=== PATIENT | female | born 1950 | race Caucasian/White ===

== ENCOUNTER → 2017-05-16 | Outpatient (CLI) | payer OTHER ==
[~2017-05-16] MED LIST: ACETAMINOPHEN-120 ML PO; ASPIRIN EC325 M1 PO; AUGMENTIN 875875 MG PO; CIPRO500 MG PO; CRESTOR40 MG PO; FLEXERIL PO; FLONASE 0.05%50 MCG NASAL; FLONASE16 GM INH; FOSAMAX 70 MG T70 MG PO; HYDROCHLOROTHIA25 M1 PO; LISINOPRIL10 MG PO; NITROGLYCERIN0.4 MG SUBLING; NORCO 5-325 TA1 EACH PO; OCEAN45 ML NS; ONDANSETRON HCL4 M2 PO; PAROXETINE HCL20 MG PO; PLAVIX 75 MG TA75 MG PO; POTASSIUM20 PO; TOPROL XL50 MG PO; VICODIN 5-5001 EACH PO; WELLBUTRIN 75 M75 M1 PO
[2017-05-16 08:20] LABS: CREATININE 1.2 mg/dL (0.6-1.0)
== END ==
LOC: CAT 07:18
PROVIDERS: Internal Medicine Cardiovascular Disease
DX: I71.4 Abdominal aortic aneurysm, without rupture (principal); N26.1 Atrophy of kidney (terminal)

== ENCOUNTER 2017-07-15 16:18 | Emergency (ER) | payer OTHER ==
[~2017-07-15] VITALS: Ht 162.6 cm; Wt 51.3 kg
--- NOTE | ~2017-07-15 | EKG ---
[address] [place] [address] ELECTROCARDIOGRAM REPORT Name: FAM DAHL Room #: DEP Christian#: [id number] Admission: 07/15/17 Attend Phys: Discharge: 07/15/17 Date of : 50 Report #: [id number] THIS REPORT FOR: //name// [facility] ED Test Date: 2017-07-15 Test Time: 16:43:52 Pat Name: FAM DAHL Department: Room: Gender: F Saw Filer: ARYAN : 1950 Requested By: Yumiko Morgan Order Number: [id number] MD: Liborio Monet Measurements Intervals [place] Rate: 71 P: -4 VT: 129 QRS: 19 QRSD: 88 T: 56 QT: 439 QTc: 478 Interpretive Statements Sinus rhythm Nonspecific ST segment abnormality Compared to ECG 11/25/2015 13:46:28 No significant changes Electronically Signed On 07-17-2017 13:29:49 CDT by Liborio Monet [email or web address] <ELECTRONICALLY SIGNED> By: Liborio Monet MD, [facility] 07/17/17 1329 1643 1643 Liborio Monet MD, FACC /EPI
[2017-07-15 16:52] LABS: BASOPHILS 0.8 % (0.0-2.0); EOSINOPHILS 1.6 % (0.0-3.0); HEMATOCRIT 38.9 % (37.0-47.0); HEMOGLOBIN 13.6 gm/dL (12.0-15.0); LYMPHOCYTES 47.7 % (24.0-44.0); MCH 32.2 pg (26.0-34.0); MONOCYTES 8.4 % (1.0-8.0); PLATELET COUNT 113 thou/uL (150-400); POLYS 41.5 % (36.0-66.0); RBC 4.23 mil/uL (4.20-5.00); WBC 4.9 thou/uL (4.0-11.0)
[2017-07-15 16:53] LABS: MANUAL DIFF NO
[2017-07-15 17:05] LABS: CALCIUM 8.9 mg/dL (8.5-10.1); CREATININE 1.4 mg/dL (0.6-1.0)
[2017-07-15 17:08] LABS: POTASSIUM 2.7 mmol/L (3.5-5.1)
[2017-07-15 17:12] LABS: DIRECT BILIRUBIN 0.1 mg/dL (<0.1-0.3); TOTAL BILIRUBIN 0.5 mg/dL (<0.1-1.0)
[2017-07-15 17:13] LABS: ALBUMIN 2.5 g/dL (3.4-5.0); TOTAL PROTEIN 6.8 g/dL (6.4-8.2)
[2017-07-15] MEDS ORDERED: SLOW-MAG64 M1 PO (17:54)
[2017-07-15] MEDS ORDERED: ZOFRAN ODT4 MG PO (17:54)
[2017-07-15] MEDS ORDERED: POTASSIUM20 PO (17:54)
[2017-07-15 18:45] VITALS: BP 159/81
[2017-07-15 18:50] LABS: URINE BILIRUBIN NEGATIVE (Negative); URINE BLOOD TRACE (Negative); URINE COLOR YELLOW; URINE GLUCOSE-RANDOM* NEGATIVE (Negative); URINE KETONES NEGATIVE (Negative); URINE NITRITE NEGATIVE (Negative); URINE PROTEIN (DIPSTICK) NEGATIVE (Negative); URINE SPECIFIC GRAVITY <= 1.005 (1.003-1.035); URINE UROBILINOGEN 0.2 E.U./dl (0.2-1.0)
[2017-07-15 18:58] LABS: SQUAMOUS >10 Many /LPF (0-3); URINE RBC 0-2 Rare /HPF (0-2); URINE WBC 6-15 Few /HPF (0-5)
[2017-07-15 18:59] LABS: CASTS None Seen /LPF (None Seen); CRYSTALS None Seen /LPF (None Seen)
== END 2017-07-15 18:47 | disposition home or self-care (01) ==
LOC: ER 16:18
PROVIDERS: Emergency Medicine
DX: N39.0 Urinary tract infection, site not specified (principal); J06.9 Acute upper respiratory infection, unspecified; R53.83 Other fatigue; E87.6 Hypokalemia; E78.00 Pure hypercholesterolemia, unspecified; I12.9 Hypertensive chronic kidney disease with stage 1 through stage 4 chronic kidney disease, or unspecified chronic kidney disease; N18.9 Chronic kidney disease, unspecified; F31.9 Bipolar disorder, unspecified; G89.29 Other chronic pain; F17.210 Nicotine dependence, cigarettes, uncomplicated; Z86.73 Personal history of transient ischemic attack (TIA), and cerebral infarction without residual deficits; Z90.710 Acquired absence of both cervix and uterus; Z88.5 Allergy status to narcotic agent; Z88.1 Allergy status to other antibiotic agents; Z91.041 Radiographic dye allergy status

== ENCOUNTER → 2017-07-21 | Outpatient (CLI) | payer OTHER ==
[~2017-07-21] MED LIST changes: +SLOW-MAG64 M1 PO; +ZOFRAN ODT4 MG PO
--- NOTE | ~2017-07-21 | 2DMMODE ---
[facility] [address] [place] [address] 2 D/M-MODE ECHOCARDIOGRAM Name: FAM DAHL [id number] Admission: 07/21/17 Attend Phys: Pj Campbell MD Discharge: Date of : 50 Date of Service: 07/21/17 1602 Report #: [id number] THIS REPORT FOR: //name// APPROVED REPORT Study performed: 07/21/2017 15:11:48 EXAM: Comprehensive 2D, Doppler, and color-flow Echocardiogram Patient Location: Out-Patient Room #: Echo lab Status: routine BSA: 1.54 HR: 76 bpm BP: 102/54 mmHg Other Information Study Quality: Good Indications CAD 2D Dimensions RVDd: 27.02 mm LVEF(%): 61.54 (>50%) IVSd: 8.42 (7-11mm) LVOT Diam: 17.33 (18-24mm) LVDd: 40.72 mm PWd: 8.64 (7-11mm) Ascending Ao: 28.30 (22-36mm) LVDs: 27.43 (25-40mm) Aortic Root: 30.43 mm IVC: 11.00 mm Falcon's LVEF: 61.54 % Volumes Left Atrial Volume (Systole) Single Plane 4CH: 26.32 mL Single Plane 2CH: 36.39 mL LA ESV Index: 24.00 mL/m2 Aortic Valve AoV Peak Shashank.: 1.13 m/s AO Peak Gr.: 5.11 mmHg LVOT Max P.28 mmHg LVOT Max V: 1.03 m/s REY Vmax: 2.16 cm2 Mitral Valve E/A Ratio: 0.8 MV Decel. Time: 253.30 ms MV E Max Shashank.: 0.78 m/s [facility] [place] [address] 2 D/M-MODE ECHOCARDIOGRAM Name: FAM DAHL JO Room #: REG [facility]..#: [id number] Admission: 07/21/17 Attend Phys: Pj Campbell MD Discharge: Date of : 50 Date of Service: 07/21/17 1602 Report #: [id number] MV A Shashank.: 0.92 m/s MV PHT: 73.46 ms IVRT: 110.73 ms Pulmonary Valve PV Peak Shashank.: 0.87 m/s PV Peak Gr.: 3.02 mmHg Pulmonary Vein P Vein S: 0.59 m/s P Vein A: 0.42 m/s P Vein D: 0.45 m/s P Vein A Dur.: 115.3 msec P Vein S/D Ratio: 1.31 Tricuspid Valve TR Peak Shashank.: 2.68 m/s TR Peak Gr.: 28.70 mmHg PA Pressure: 29.00 mmHg Left Ventricle The left ventricle is normal size. There is normal left ventricular wall thickness. The left ventricular systolic function is normal. The left ventricular ejection fraction is within the normal range. LVEF is 55-60%. Grade I - abnormal relaxation pattern. Right Ventricle The right ventricle is normal size. The right ventricular systolic function is normal. Atria The left atrium size is normal. The right atrium size is normal. Aortic Valve The aortic valve is normal in structure. Aortic valve is calcified. No aortic regurgitation is present. There is no aortic valvular stenosis. Mitral Valve The mitral valve is normal in structure. Mild mitral regurgitation. No evidence of mitral valve stenosis. Tricuspid Valve The tricuspid valve is normal in structure. There is mild tricuspid regurgitation. There is mild pulmonary hypertension. Pulmonic Valve The pulmonary valve is normal in structure. There is no pulmonic [address] [address] 2 D/M-MODE ECHOCARDIOGRAM Name: FAM DAHL Room #: REG CL Wili#: [id number] Admission: 07/21/17 Attend Phys: Pj Campbell MD Discharge: Date of : 50 Date of Service: 07/21/17 1602 Report #: [id number] valvular regurgitation. Great Vessels The aortic root is normal in size. IVC is normal in size and collapses >50% with inspiration. Pericardium There is no pericardial effusion. <Conclusion> The left ventricle is normal size. The left ventricular systolic function is normal. Grade I - abnormal relaxation pattern. The right ventricle is normal size. The left atrium size is normal. There is no aortic valvular stenosis. Mild mitral regurgitation. There is mild tricuspid regurgitation. There is mild pulmonary hypertension. <ELECTRONICALLY SIGNED> By: Pj Campbell MD 07/21/17 1602 160 160 Pj Campbell MD /INF
== END ==
LOC: CV 06:52
DX: I25.10 Atherosclerotic heart disease of native coronary artery without angina pectoris (principal)